=== PATIENT | male | born 1980 | race Hispanic/Latino ===

== ENCOUNTER 2017-08-23 14:56 | Emergency (ER) | payer OTHER ==
[~2017-08-23] VITALS: Ht 188 cm; Wt 140.6 kg
[~2017-08-23 14:56] MED LIST: AMARYL2 MG PO; AUGMENTIN 875-1 EACH PO; CHLORTHALIDONE50 MG; LISINOPRIL20 MG PO; MELOXICAM7.5 MG PO; METFORMIN HCL1000 MG PO; METFORMIN HCL500 M1; PRAVASTATIN SOD20 MG PO; TYLENOL WITH C1 EACH PO; ULTRAM50 MG PO; VIBRAMYCIN100 MG PO
[2017-08-23] MEDS ORDERED: DIAZEPAM 5 MG TAB PO PRN (15:15)
[2017-08-23] MEDS ORDERED: HYDROCODONE/APAP 10MG-325MG TAB PO ONE (15:15)
[2017-08-23] MEDS ORDERED: KETOROLAC TROMETHAMINE 60 MG/2 ML VIAL IM ONE (15:15)
--- NOTE | 2017-08-23 17:18 | Diagnostic Imaging Report ---
PROCEDURE:X-RAY UNILATERAL RIBS WITH CHEST X-RAY COMPARISON:None. INDICATIONS:RIB PAIN FINDINGS: BONES: Normal mineralization. No acute fracture or dislocation. Joint spaces are within normal limits. No lytic or expansile lesion. SOFT TISSUES:Negative. OTHER:Lungs are clear. Cardiac mediastinal silhouette is unremarkable.. CONCLUSION: No acute displaced fracture or dislocation. Pankaj Andino M.D. Dictated by: Pankaj Andino M.D. on 08/23/2017 at 17:20 Electronically approved by: Pankaj Andino M.D. on 08/23/2017 at 17:20
[2017-08-23 18:04] VITALS: BP 126/89
== END 2017-08-23 17:55 | disposition home or self-care (01) ==
LOC: ER 14:56
DX: R07.89 Other chest pain (principal); S29.011A Strain of muscle and tendon of front wall of thorax, initial encounter; X50.0XXA Overexertion from strenuous movement or load, initial encounter; Y99.0 Civilian activity done for income or pay
CPT/HCPCS: 71101; 99283; J1885

== ENCOUNTER 2017-10-28 18:43 | Emergency (ER) | payer OTHER ==
[~2017-10-28] VITALS: Ht 188 cm; Wt 140.6 kg
[2017-10-28] MEDS ORDERED: KETOROLAC TROMETHAMINE 60 MG/2 ML VIAL IM ONE (19:15)
[2017-10-28] MEDS ORDERED: HYDROCODONE/APAP 5MG-325MG TAB PO ONE (19:15)
[2017-10-28] MEDS ORDERED: CYCLOBENZAPRINE HCL 10 MG TAB PO ONE (19:15)
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
[2017-10-28 21:39] VITALS: BP 144/98
== END 2017-10-28 21:46 | disposition home or self-care (01) ==
LOC: ER 18:43
DX: M54.2 Cervicalgia (principal); M25.512 Pain in left shoulder; M54.5 Low back pain; S00.83XA Contusion of other part of head, initial encounter; S20.219A Contusion of unspecified front wall of thorax, initial encounter; M62.838 Other muscle spasm; V53.5XXA Driver of pick-up truck or van injured in collision with car, pick-up truck or van in traffic accident, initial encounter; Y92.488 Other paved roadways as the place of occurrence of the external cause
CPT/HCPCS: 70450; 71046; 72110; 72125; 73030; 96372; 99283; J1885

== ENCOUNTER 2018-04-04 19:29 | Emergency (ER) | payer OTHER ==
[~2018-04-04] VITALS: Ht 188 cm; Wt 140.6 kg
--- OUTSIDE RECORDS SUMMARY | 2018-04-04 19:32 | XMS REPORT | Clinical Summary ---
Author Author [facility] Organization [facility] Address Unknown Phone Unavailable Care Team Providers Care Rn Orthopedic Name Role Phone Ross Rose MD PCP Allergies Not on File Medications Not on file Active Problems Not on file Social History Date Tobacco Use Types Packs/Day Years Used Never Assessed Sex Assigned at Date Recorded Not on file Industry Job Start Date Occupation Not on file Not on file Not on file Travel End Travel History Travel Start No recent travel history available. Last Filed Vital Signs Not on file Plan of Treatment Health Maintenance Due Date Last Done Comments INFLUENZA VACCINE 11/16/2017 Procedures Comments Procedure Name Priority Date/Time Associated Diagnosis SEMEN ANALYSIS Routine 01/25/2018 4:03 PM CDT after 04/03/2017 Results * Semen analysis (01/25/2018 4:03 PM CDT) Volume, semen 2 2-5mL mL [facility] [place] DEPARTMENT OF PATHOLOGY AND GENOMIC MEDICINE Color, semen Grimes-White Grimes-White mL [facility] [place] [facility] DEPARTMENT OF PATHOLOGY AND GENOMIC MEDICINE Appearance, semen Opaque [facility] DEPARTMENT OF PATHOLOGY AND GENOMIC MEDICINE Count, semen 0Comment: No sperm seen--Many >20mil/mL mil/mL [facility] DEPARTMENT OF coleman examined PATHOLOGY AND GENOMIC MEDICINE Morphology, semen FootnoteComment: No sperm seen >50% % NRM [facility] [place] DEPARTMENT OF PATHOLOGY AND GENOMIC MEDICINE pH, semen 8.0 7.2 - 8.0 [facility] [place] DEPARTMENT OF PATHOLOGY AND GENOMIC MEDICINE Viscosity, semen Normal [facility] DEPARTMENT OF Comment: PATHOLOGY AND Normal--------Drips/pours GENOMIC MEDICINE easily Moderate------Thick, does not drop/pour easily Marked--------Unable to pipette or work with Liquefaction, semen <=60 <=60 [facility] DEPARTMENT OF PATHOLOGY AND GENOMIC MEDICINE Motility 1 hr, semen Not Performed >50% [facility] DEPARTMENT OF PATHOLOGY AND GENOMIC MEDICINE Motility 4 hr, semen Not Performed [facility] DEPARTMENT OF PATHOLOGY AND GENOMIC MEDICINE Motility 24 hr, semen Not Performed [facility] DEPARTMENT OF PATHOLOGY AND GENOMIC MEDICINE RBC, semen 1-5 None seen/HPF % [facility] DEPARTMENT OF PATHOLOGY AND GENOMIC MEDICINE WBC, semen 21-40 (A) 0-2/HPF % [facility] [place] DEPARTMENT OF PATHOLOGY AND GENOMIC MEDICINE Collection method, semen Self [facility] DEPARTMENT OF PATHOLOGY AND GENOMIC MEDICINE Abstinence days, semen 7 [facility] DEPARTMENT OF PATHOLOGY AND GENOMIC MEDICINE Container, semen Sterile [facility] DEPARTMENT OF PATHOLOGY AND GENOMIC MEDICINE Collect problems, semen None [facility] DEPARTMENT OF PATHOLOGY AND GENOMIC MEDICINE Collect time, semen 1,603 [facility] DEPARTMENT OF PATHOLOGY AND GENOMIC MEDICINE Lab receipt time, semen 1,613 [facility] DEPARTMENT OF PATHOLOGY AND GENOMIC MEDICINE Analysis time, semen 1,630 [facility] DEPARTMENT OF PATHOLOGY AND GENOMIC MEDICINE Specimen Fluid Performing Organization Address City/State/Zipcode Phone Number [facility] DEPARTMENT OF [facility] [address] PATHOLOGY AND GENOMIC MEDICINE after 04/03/2017 Insurance Payer Benefit Subscriber ID Type Phone Address Plan / Group CIGNA CIGNA OPEN xxxxxxxxx O ACCESS/NET WORK Advance Directives Patient has advance care planning documents on file. For more information, [place] e contact: Eduardo Nunes [address] [place] [address]
--- OUTSIDE RECORDS SUMMARY | 2018-04-04 19:32 | XMS REPORT | Summary of Care ---
Author Author Bing Albright M.A. Unknown Address Unknown Phone Unavailable Care Team Providers Care Pipe Smoker Machine Operator Name Role Phone MACK TURNER M.D. Unavailable Unavailable MONIQUE PAZ III, MD Unavailable Unavailable JOHNNY BROWN AR, MACK Adams Unavailable Unavailable Functional Status Name Dates Details Functional status health issues are not documented Status: Name Dates Details Cognitive status health issues are not documented Status: Problems Name Dates Details Active medical history not documented Status: Medications Name Dates Details Medications not documented Allergies and Adverse Reactions Name Dates Details Allergy history not documented Status: Procedures Procedure Dates Details Procedures not documented Immunization Name Dates Details Immunizations not documented Social History Name Dates Details Unknown if ever smoked Vital Signs Date Test Result Details No Known Vitals to report Results Date Description Value Details Results not documented Plan of Care Name Dates Details Planned Observations Planned Goals not documented Interventions Provided Plan* 02/21/2018 * To whom it may concern: * This is to certify that LAZ HIGHTOWER came into the office. However, he was not seen since he's currently under treatment with another pain management physician. * Thank you, * Bing Albright MA * . Instructions Name Dates Details Instructions not documented Encounters Appointment; MACK TURNER M.D. Encounter Diagnosis: Problem not documented On: 21-Feb-2018 9:00
[2018-04-04] MEDS ORDERED: GABAPENTIN300 MG PO (20:42)
[2018-04-04] MEDS ORDERED: MELOXICAM7.5 MG PO (20:42)
[2018-04-04] MEDS ORDERED: AMOX TR-K CLV1 EAC2 PO (20:42)
[2018-04-04] MEDS ORDERED: SERTRALINE HCL100 MG PO (20:42)
[2018-04-04] MEDS ORDERED: PRAVASTATIN SOD40 MG PO (20:42)
[2018-04-04 20:45] VITALS: BP 168/109
== END 2018-04-04 20:48 | disposition home or self-care (01) ==
LOC: ER 19:29
DX: R51 Headache (principal); J01.10 Acute frontal sinusitis, unspecified
CPT/HCPCS: 99282

== ENCOUNTER 2019-11-22 03:17 | Inpatient (IN) | payer OTHER ==
[~2019-11-22] VITALS: Ht 188 cm; Wt 130.9 kg
[~2019-11-22 03:17] MED LIST changes: +AMOX TR-K CLV1 EAC2 PO; +GABAPENTIN300 MG PO; +PRAVASTATIN SOD40 MG PO; +SERTRALINE HCL100 MG PO
[2019-11-22] MEDS ORDERED: ACETAMINOPHEN 325 MG TAB PO ONE (03:45)
[2019-11-22] MEDS ORDERED: HYDROCODONE/APAP 5MG-325MG TAB PO ONE (03:45)
--- NOTE | 2019-11-22 03:45 | Emergency Department Note ---
History of Present Illnes History of Present Illness Chief Complaint: Genitourinary History of Present Illness This is a 38 year old male with recent diagnosis of "orchitis " by his urologist presents to the ED for recurrent testicular pain with enlargement of Right testicle onset 2 days prior. Onset (how long ago): day(s) (2) Radiation: Reports non-radiation Severity: moderate Onset quality: gradual Duration (how long): day(s) (2) Timing of current episode: constant Progression: worsening Chronicity: recurrent Context: Denies trauma/injury Relieving factors: none Exacerbating factors: none Associated symptoms: Reports denies other symptoms Previous service: tests performed, one or more referrals, re-evaluation Past Medical/Family History Physician Review I have reviewed the patient's past medical and family history. Any updates have been documented here. Past Medical History Recent Fever: No Clinical Suspicion of Infectio: No New/Unexplained Change in Ment: No Past Medical History: Hypertension, Diabetes, Hyperlipedemia Other Surgery: Rt RCR Social History Smoking Cessation: Never Smoker Alcohol Use: None Any Illegal Drug Use: No Other Last Tetanus: <5yrs Review of Systems Review of Systems Constitutional: Reports no symptoms EENTM: Reports no symptoms Cardiovascular: Reports no symptoms Respiratory: Reports no symptoms Gastrointestinal: Reports no symptoms Genitourinary: Reports pain Musculoskeletal: Reports no symptoms Integumentary: Reports no symptoms Neurological: Reports no symptoms Psychological: Reports no symptoms Endocrine: Reports no symptoms Hematological/Lymphatic: Reports no symptoms Physical Exam Related Data Allergies: Coded Allergies: No Known Allergies (Unverified , 10/28/17) Triage Vital Signs Vital Signs Date Time Temp Pulse Resp B/P (MAP) Pulse Ox O2 Delivery O2 Flow Rate FiO2 11/22/19 03:41 100.3 102 20 116/72 98 Room Air Vital signs reviewed: Yes Physical Exam CONSTITUTIONAL Constitutional: Present well-developed, Present well-nourished, Present obese; Absent ill appearing HENT HENT: Present normocephalic, Present atraumatic, Present oropharynx clear/moist, Present nose normal HENT L/R: Present left ext ear normal, Present right ext ear normal EYES Eyes: Reports PERRL, Reports conjunctivae normal NECK Neck: Present ROM normal PULMONARY Pulmonary: Present effort normal, Present breath sounds normal CARDIOVASCULAR Cardiovascular: Present intact distal pulses, Present tachycardia GASTROINTESTINAL Abdominal: Present soft, Present nontender, Present bowel sounds normal GENITOURINARY Genitourinary: Present other (enlarged R hemiscrotum) SKIN Skin: Present warm, Present dry MUSCULOSKELETAL Musculoskeletal: Present ROM normal NEUROLOGICAL Neurological: Present alert, Present oriented x 3, Present no gross motor or sensory deficits PSYCHOLOGICAL Psychological: Present mood/affect normal, Present judgement normal Results Laboratory Lab results reviewed: Yes Laboratory comments wbc 17k Imaging Imaging results reviewed: Yes Impressions [place] [address] Patient Name: LAZ HIGHTOWER MR #: [id number] : 1980 Age/Sex: 38/M Req #: [id number] Adm Physician: Ordered by: DENIS MARLOW DO Report #: [id number] Location: ER Room/Bed: Procedure: [id number] CT/CT ABDOMEN/PELVIS W Exam Date: 11/22/19 Exam Time: 0800 REPORT STATUS: Signed CT of the abdomen and pelvis, with contrast. History: Right inguinal hernia. Comparison: Testicular ultrasound examination from earlier 11/22/2019. Technique: Multidetector CT scanning of the abdomen and pelvis was performed from the level of the lung bases to the inferior pubic rami after intravenous and oral administration of contrast. Coronal and sagittal multiplanar reformations were obtained. RADIATION DOSE: Total DLP: 1179.07 mGy*cm Dose modulation, iterative reconstruction, and/or weight based adjustment of the mA/kV was utilized to reduce the radiation dose to as low as reasonably achievable. FINDINGS: The visualized intrathoracic contents demonstrate no significant abnormalities. The liver is normal in size but appears diffusely decreased in attenuation in comparison the spleen suggestive of fatty infiltration. No focal hepatic abnormality is identified. The gallbladder is unremarkable. There is no intra or extrahepatic biliary ductal dilatation. The spleen is mildly prominent but otherwise unremarkable. The stomach, pancreas, and bilateral adrenal glands demonstrate no significant abnormalities. The kidneys are normal in size and location and enhance symmetrically. There is no evidence for nephrolithiasis or hydronephrosis. No ureteral stone or dilatation is appreciated. The urinary bladder is unremarkable. Dystrophic calcifications noted within the prostate which is otherwise unremarkable. There is scrotal wall thickening with inflammatory change and fluid noted about the right testicle extending into the right inguinal region which was better evaluated on the recent prior testicular ultrasound examination. In this patient with history of inguinal hernia, no fat or bowel containing inguinal hernia or fascial defect is appreciated. The abdominal aorta is normal course and caliber. The IVC is unremarkable. The visualized loops of small and large bowel demonstrate no evidence of obstruction or inflammation. The appendix/appendiceal stump is identified and appears unremarkable. There is no ascites or intraperitoneal free air. Multiple normal-sized periaortic and inguinal lymph nodes noted which are nonspecific. No abnormally enlarged lymph nodes are identified by CT size criteria. The osseous structures demonstrate no evidence for acute fracture or destructive process. The extraperitoneal soft tissues are unremarkable. IMPRESSION: Scrotal wall thickening and fat stranding/fluid noted about the right testicle with extension into the right inguinal region. Findings are better evaluated on the recent prior testicular ultrasound examination which demonstrated evidence for right epididymo-orchitis. No organized/drainable fluid collection identified. No evidence for inguinal hernia. Inflammatory change noted along the right inguinal ligament which likely created the appearance of a bowel containing hernia on the prior ultrasound examination. Signed by: Dr. Quinton Santana MD on 11/22/2019 9:09 AM Dictated By: QUINTON SANTANA MD 8 Transcribed By: IMELDA on 11/22/19908 COPY TO: DENIS MARLOW DO~ Assessment & Plan Medical Decision Making MDM Diff Dx : inguinal hernia, testicular CA, epididymitis, orchitis, testicular torsion. Assessment & Plan Final Impression: (1) Orchitis Depart Disposition: ADMITTED Home Meds Active Scripts Tramadol Hcl (ULTRAM) 50 Mg Tablet, 50 MG PO Q6HR PRN for ABDOMINAL PAIN, #14 TAB Prov:MIL RETANA DO 11/22/19 Doxycycline Hyclate (DOXYCYCLINE HYCLATE) 100 Mg Capsule, 100 MG PO BID, #20 TAB 0 Refills Prov:MIL RETANA DO 11/22/19 Reported Medications Amlodipine Bes/Olmesartan Med (MARCY 10-40 MG TABLET) 1 Each Tablet, 1 TAB PO DAILY 11/22/19 Empagliflozin/Metformin HCl (Synjardy Xr 10-1,000 mg Tablet) 1 Each Tab.bp.24h, 2 TAB PO DAILY 11/22/19 Multivitamin (MULTI-VITAMIN DAILY) 1 Each Tablet, 1 TAB PO DAILY 11/22/19 Meloxicam (MELOXICAM) 7.5 Mg Tablet, 7.5 MG PO DAILY 04/04/18 Sertraline Hcl (SERTRALINE HCL) 100 Mg Tablet, 100 MG PO DAILY 04/04/18 Pravastatin Sodium (PRAVASTATIN SODIUM) 40 Mg Tablet, 40 MG PO DAILY 04/04/18 Discontinued Reported Medications Amoxicillin/Potassium Clav (AMOX TR-K CLV 875-125 MG TAB) 1 Each Tablet, 1 TAB PO BID 04/04/18 Gabapentin (GABAPENTIN) 300 Mg Capsule, 300 MG PO TID, #60 CAP 04/04/18 Metformin Hcl (METFORMIN HCL) 1,000 Mg Tablet, 1000 MG PO BID 10/17/15 Lisinopril (PRINAVIL / ZESTRIL) 20 Mg Tablet, 20 MG PO DAILY 05/19/13 Medications in the ED Acetaminophen 650 mg ONCE ONCE PO ; Start 11/22/19 at 03:45; Stop 11/22/19 at 03:46 Acetaminophen/ Hydrocodone Bitart 1 ea ONCE ONCE PO ; Start 11/22/19 at 03:45; Stop 11/22/19 at 03:46 DENIS MARLOW DO Nov 22, 2019 03:45
--- OUTSIDE RECORDS SUMMARY | 2019-11-22 05:01 | XMS REPORT | Clinical Summary ---
Author Author [facility] Organization [facility] Address Unknown Phone Unavailable Care Team Providers Care Special Tax Auditor Name Role Phone Ross Rose MD PCP [...] Health Maintenance Due Date Last Done Comments DIABETIC RETINAL EYE EXAM 1980 DIABETIC FOOT EXAM 11/28/1989 URINE MICROALBUMIN 11/28/1989 INFLUENZA VACCINE 11/17/2019 Results Not on fileafter 11/21/2018 Insurance Type Payer Benefit Subscriber ID Effective Phone Address Plan / Dates Group HMO CIGNA CIGNA OPEN xxxxxxxxx 2017-P ACCESS/NET resent WORK [address] (Home) [place] [address] Advance Directives For more information, please contact: [phone] Patient Imaging Center Manager Explanation Type Date Recorded Advance Directives, Living Will and Medical Power of Piece Marker [employer]
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
[2019-11-22 05:03] LABS: BILIRUBIN,URINE NEGATIVE (NEGATIVE); CLARITY,URINE CLEAR (CLEAR); COLOR,URINE YELLOW (YELLOW); KETONES,URINE 2+ (NEGATIVE); LEUKOCYTE ESTERASE ,URINE NEGATIVE (NEGATIVE); NITRITE,URINE NEGATIVE (NEGATIVE); PROTEIN,URINE DIPSTICK NEGATIVE (NEGATIVE); URINE UROBILINOGEN 0.2 mg/dL (0.2 - 1)
[2019-11-22 05:18] LABS: BACTERIA,URINE RARE /HPF; EPITHELIAL CELLS,URINE FEW /LPF
--- NOTE | 2019-11-22 05:59 | Diagnostic Imaging Report ---
EXAM: Scrotal Ultrasound with Duplex INDICATION: testicular pain COMPARISON: None TECHNIQUE: Transverse and longitudinal images were obtained of the scrotum with grayscale imaging, color Doppler and spectral waveform analysis. FINDINGS: Right testis: Size: 3.7 x 2.4 x 3.2 cm, normal in size. Echogenicity: Normal Mass/Cysts: None Left testis: Size: 4.1 x 2.4 x 2.6 cm, normal in size. Echogenicity: Normal Mass/Cysts: None Epididymis: Appearance: Right epididymis is enlarged, heterogenous. Left epididymis is normal. Mass/Cysts: 5 mm left epididymal head cyst. Extratesticular: Masses: Peristalsing bowel is seen in the right inguinal region. Hydrocele: None Varicocele: None Doppler: Arterial and venous flow are demonstrated in both testes on color Doppler evaluation is seen. There is increased hypervascularity of the right testis and epididymis No evidence of testicular torsion. IMPRESSION: 1. No evidence of testicular torsion. 2. Acute right epididymo-orchitis. 3. Bowel containing right inguinal hernia. Signed by: Victor M Hernandez MD on 11/22/2019 5:56 AM
[2019-11-22] MEDS ORDERED: ONDANSETRON HCL INJ 2MG/ML 2ML 2 MG/ML VIAL IV STA (06:33)
[2019-11-22] MEDS ORDERED: MORPHINE SULFATE INJ 4 MG/ML INJ 1ML IV STA (06:33)
[2019-11-22] MEDS ORDERED: DIATRIZOATE MEGL/DIATRIZOA SOD 30 ML BTL PO ONE (07:02)
[2019-11-22 07:06] LABS: BASOPHILS # (AUTO) 0.1 (0.0-0.1); BASOPHILS % 0.3 % (0.0-1.0); EOSINOPHILS # (AUTO) 0.1 (0.0-0.4); EOSINOPHILS % 0.4 % (0.0-6.0); HEMATOCRIT 46.3 % (38.2-49.6); HEMOGLOBIN 15.2 g/dL (14.0-18.0); LYMPHOCYTES # (AUTO) 1.4 (1.0-3.2); MEAN CORPUSCULAR HEMOGLOBIN 29.3 pg (28-32); MEAN CORPUSCULAR HGB CONC 32.8 g/dL (31-35); MEAN CORPUSCULAR VOLUME 89.4 fL (81-99); MONOCYTES # (AUTO) 1.3 (0.2-0.8); MONOCYTES % 7.2 % (4.4-11.3); NEUTROPHILS # (AUTO) 14.9 (2.1-6.9); NEUTROPHILS % 83.4 % (38.7-80.0); PLATELET COUNT 167 x10e3/uL (140-360); RED BLOOD COUNT 5.18 x10e6/uL (4.3-5.7); RED CELL DISTRIBUTION WIDTH 13.7 % (11.7-14.4)
[2019-11-22] MEDS ORDERED: IOPAMIDOL 370 MG/ML 200 ML INFUS..BTL INJ ONE (07:25)
[2019-11-22] MEDS ORDERED: SODIUM CHLORIDE 0.9% 50ML 50 ML ONE (07:25)
[2019-11-22 07:40] LABS: ALANINE AMINOTRANSFERASE 22 IU/L (0-55); ALBUMIN 3.6 g/dL (3.5-5.0); ALBUMIN/GLOBULIN RATIO 0.9 (0.8-2.0); ALKALINE PHOSPHATASE 83 IU/L (40-150); ANION GAP 14.3 mmol/L (8-16); BLOOD UREA NITROGEN 15 mg/dL (7-26); BUN/CREATININE RATIO 16 (6-25); CALCIUM 9.6 mg/dL (8.4-10.2); CARBON DIOXIDE 22 mmol/L (22-29); CHLORIDE 103 mmol/L (98-107); CREATININE, SERUM 0.96 mg/dL (0.72-1.25); EST GLOMERULAR FILTRATION RATE > 60 ML/MIN (60-); GLUCOSE 134 mg/dL (74-118); POTASSIUM 4.3 mmol/L (3.5-5.1); SODIUM 135 mmol/L (136-145)
--- NOTE | 2019-11-22 09:12 | Diagnostic Imaging Report ---
CT of the abdomen and pelvis, with contrast. History: Right inguinal hernia. Comparison: Testicular ultrasound examination from earlier 11/22/2019. Technique: Multidetector CT scanning of the abdomen and pelvis was performed from the level of the lung bases to the inferior pubic rami after intravenous and oral administration of contrast. Coronal and sagittal multiplanar reformations were obtained. RADIATION DOSE: Total DLP: 1179.07 mGy*cm Dose modulation, iterative reconstruction, and/or weight based adjustment of the mA/kV was utilized to reduce the radiation dose to as low as reasonably achievable. FINDINGS: The visualized intrathoracic contents demonstrate no significant abnormalities. The liver is normal in size but appears diffusely decreased in attenuation in comparison the spleen suggestive of fatty infiltration. No focal hepatic abnormality is identified. The gallbladder is unremarkable. There is no intra or extrahepatic biliary ductal dilatation. The spleen is mildly prominent but otherwise unremarkable. The stomach, pancreas, and bilateral adrenal glands demonstrate no significant abnormalities. The kidneys are normal in size and location and enhance symmetrically. There is no evidence for nephrolithiasis or hydronephrosis. No ureteral stone or dilatation is appreciated. The urinary bladder is unremarkable. Dystrophic calcifications noted within the prostate which is otherwise unremarkable. There is scrotal wall thickening with inflammatory change and fluid noted about the right testicle extending into the right inguinal region which was better evaluated on the recent prior testicular ultrasound examination. In this patient with history of inguinal hernia, no fat or bowel containing inguinal hernia or fascial defect is appreciated. The abdominal aorta is normal course and caliber. The IVC is unremarkable. The visualized loops of small and large bowel demonstrate no evidence of obstruction or inflammation. The appendix/appendiceal stump is identified and appears unremarkable. There is no ascites or intraperitoneal free air. Multiple normal-sized periaortic and inguinal lymph nodes noted which are nonspecific. No abnormally enlarged lymph nodes are identified by CT size criteria. The osseous structures demonstrate no evidence for acute fracture or destructive process. The extraperitoneal soft tissues are unremarkable. IMPRESSION: Scrotal wall thickening and fat stranding/fluid noted about the right testicle with extension into the right inguinal region. Findings are better evaluated on the recent prior testicular ultrasound examination which demonstrated evidence for right epididymo-orchitis. No organized/drainable fluid collection identified. No evidence for inguinal hernia. Inflammatory change noted along the right inguinal ligament which likely created the appearance of a bowel containing hernia on the prior ultrasound examination. Signed by: Dr. Quinton Santana MD on 11/22/2019 9:09 AM
[2019-11-22] MEDS ORDERED: ULTRAM50 MG PO (11:09)
[2019-11-22] MEDS ORDERED: DOXYCYCLINE HY100 MG PO (11:09)
[2019-11-22] MEDS ORDERED: ONDANSETRON HCL INJ 2MG/ML 2ML 2 MG/ML VIAL IV PRN (11:30)
[2019-11-22] MEDS ORDERED: MORPHINE SULFATE 2 MG/ML SYR 1ML IV PRN (11:30)
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
--- OUTSIDE RECORDS SUMMARY | 2019-11-22 11:38 | XMS REPORT | Clinical Summary ---
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
[2019-11-22] MEDS: MORPHINE SULFATE INJ 4 MG/ML INJ 1ML IV PRN ×2 (12:01→21:22)
[2019-11-22 12:45] VITALS: BP 115/76
--- NOTE | 2019-11-22 12:45 | NUR ---
Received patient via wheelchair from ER. AAOX4 to time, person, place, situation. Respirations even and unlabored. Oriented patient to room. Instructed to use call light for assistance. Voiced understanding.
[2019-11-22 13:00] VITALS: BP 115/76
[2019-11-22] MEDS ORDERED: MULTI-VITAMIN1 EACH PO (13:36)
[2019-11-22] MEDS ORDERED: AZOR 10-40 MG1 EACH PO (13:36)
[2019-11-22] MEDS ORDERED: SYNJARDY XR 101 EACH PO (13:36)
[2019-11-22] MEDS ORDERED: SODIUM CHLORIDE 0.9% 250ML 250 ML ONE (14:40)
--- NOTE | 2019-11-22 15:00 | NUR ---
Provided patient with ice pack as ordered
[2019-11-22] MEDS: MEROPENEM 1GM 100 ML IV SCH ×2 (15:07→21:22)
[2019-11-22] MEDS: HYDROCODONE/APAP 5MG-325MG TAB PO PRN (15:50)
[2019-11-22 15:53] VITALS: BP 109/67
--- NOTE | 2019-11-22 17:24 | Consultation ---
DATE OF CONSULTATION: 11/22/[address] Lindsay. REASON FOR CONSULTATION: Painful testicles, particularly the right side. HISTORY: A 38-year-old male, comes to the emergency room with increasing amount of pain from the right testicle in the left of a week's duration. He was originally given ampicillin, switched over to Cipro when the ampicillin did not work, switched over to nitrofurantoin when he [facility] a [facility] because of more swelling on the right testicle and increased pain. He had taken all of the three antibiotics and come to the emergency room with more pain and swelling on his right testicle going to his groin. He gives no history of having gross hematuria or having kidney stones or any urological surgery. On history, the patient gives a history of having had swelling of one testicle or the other since it was 15 years old. This swelling has been intermittent, sometimes it happen 2 to 3 times a year and sometimes it goes away for even up to two years at a time, but most of the time he says that he has it once or twice a year. He has always taken antibiotic and always has responded to antibiotic right away. It is the first time when the response is not rapid as he is used to. Also, by history he states that he has not had any children that 2 years ago he was tested and he had no sperms and he was told that he probably has had his epididymal tubules obstructed from all the previous infections that he has had of epididymitis. SOCIAL HISTORY: He is . He has no biological children, but his has had 6 children, which he has helped raise. ALLERGIES: NO KNOWN DRUG ALLERGIES. MEDICATIONS: See list. PREVIOUS MEDICAL HISTORY: He has had diabetes for which he takes medications for it. He also follows a diet. He stated that he has lost approximately 50 pounds weight in the last 2 years. PHYSICAL EXAMINATION: On physical examination, bilaterally descended testicles. The epididymis on the right side is extremely swollen and hard. The skin is not attached to the tunica is easily movable. The only apparent thing is the swelling. The left testicle is easily palpable. The tail of the epididymis on the left side is hard, minimally tender. Cord on the right side is swollen and tender. The penis is circumcised. Prostate is approximately 30 g. IMAGING: Ultrasound shows epididymitis, acute from the right side. Testicle is normal as well as the left one. Examination of the groin with ultrasound shows no hernias plus enlargement and engorgement of the blood vessels of the cord on the right side. The left is normal. CT scan does not show any urological abnormality. There is no hernias also on CT scan. IMPRESSION: Acute right epididymitis. RECOMMENDATIONS: IV antibiotics. He has been on Cipro, ampicillin, and nitroglycerin by mouth and would like to cover him for Pseudomonas, so imipenem or member of its family will be the proper antibiotic, I will write that order. Also, he needs to have something for pain and I have given that order as well. I would expect the patient to be in the hospital between 3 to 5 days receiving IV antibiotics. Urinalysis does show white blood cells and red blood cells, although there is no bacteria, but he has been on oral antibiotic three different ones prior to this admission; therefore, I do not think the culture will be positive. I will presume that the patient has had this chronicity and I would recommend that once the patient is over this acute process, and once his swelling has gone down, that a bilateral epididymectomy should be performed. He has no sperms. Therefore, we should get rid of the problem that he has had since he is 15 years old. Francisco Lewis MD [facility]/MODL /[id number] cc: Ross Rose III, MD
--- NOTE | 2019-11-22 18:52 | NUR ---
Report given to oncoming nurse of patient's status. Resting in bed. NO s/s of acute distress noted. Side rails upx2, call light within reach.
[2019-11-22 20:00] VITALS: BP 112/76
[2019-11-22 20:08] VITALS: BP 112/76
[2019-11-22] MEDS ORDERED: HYDRALAZINE HCL 25 MG TAB PO PRN (21:30)
[2019-11-22] MEDS ORDERED: DEXTROSE 50% SYRINGE 50 ML IV PRN (21:30)
[2019-11-22] MEDS ORDERED: TRAMADOL HCL 50 MG TAB PO PRN (21:30)
[2019-11-22] MEDS: PRAVASTATIN 20 MG TAB PO SCH (22:38)
[2019-11-22] MEDS: INSULIN LISPRO 100 UNIT/1 ML 3ML VIAL SQ SCH (22:42)
[2019-11-22 23:55] VITALS: BP 108/63
[2019-11-23 04:15] VITALS: BP 116/71
[2019-11-23] MEDS: MORPHINE SULFATE INJ 4 MG/ML INJ 1ML IV PRN ×3 (05:00→20:04)
[2019-11-23] MEDS: MEROPENEM 1GM 100 ML IV SCH ×3 (05:01→20:57)
[2019-11-23 05:23] LABS: BASOPHILS % 0.2 % (0.0-1.0); EOSINOPHILS # (AUTO) 0.2 (0.0-0.4); EOSINOPHILS % 1.1 % (0.0-6.0); HEMATOCRIT 45.6 % (38.2-49.6); HEMOGLOBIN 14.8 g/dL (14.0-18.0); LYMPHOCYTES # (AUTO) 1.4 (1.0-3.2); LYMPHOCYTES % 9.4 % (18.0-39.1); MEAN CORPUSCULAR HEMOGLOBIN 29.4 pg (28-32); MEAN CORPUSCULAR HGB CONC 32.5 g/dL (31-35); MEAN CORPUSCULAR VOLUME 90.5 fL (81-99); MONOCYTES # (AUTO) 0.9 (0.2-0.8); MONOCYTES % 5.8 % (4.4-11.3); NEUTROPHILS # (AUTO) 12.4 (2.1-6.9); PLATELET COUNT 169 x10e3/uL (140-360); RED BLOOD COUNT 5.04 x10e6/uL (4.3-5.7); RED CELL DISTRIBUTION WIDTH 14.1 % (11.7-14.4)
[2019-11-23 05:49] LABS: ALANINE AMINOTRANSFERASE 18 IU/L (0-55); ALBUMIN 3.4 g/dL (3.5-5.0); ALBUMIN/GLOBULIN RATIO 0.8 (0.8-2.0); ALKALINE PHOSPHATASE 73 IU/L (40-150); ANION GAP 13.5 mmol/L (8-16); BLOOD UREA NITROGEN 17 mg/dL (7-26); BUN/CREATININE RATIO 18 (6-25); CALCIUM 9.6 mg/dL (8.4-10.2); CARBON DIOXIDE 25 mmol/L (22-29); CHLORIDE 102 mmol/L (98-107); CREATININE, SERUM 0.94 mg/dL (0.72-1.25); EST GLOMERULAR FILTRATION RATE > 60 ML/MIN (60-); GLUCOSE 105 mg/dL (74-118); POTASSIUM 4.5 mmol/L (3.5-5.1); SODIUM 136 mmol/L (136-145)
--- NOTE | 2019-11-23 07:20 | NUR ---
PATIENT IS AWAKE, ALERT, AND IN STABLE CONDITION WITH NO S/S OF RESPIRATORY DISTRESS. NO PAIN VOICED AT THIS TIME. SWELLING NOTED TO RIGHT SCROTUM AREA- PATIENT APPLYING ICE PACK. CALL LIGHT IS WITHIN REACH, PATIENT INSTRUCTED TO CALL FOR ASSISTANCE NEEDED.
[2019-11-23] MEDS: INSULIN LISPRO 100 UNIT/1 ML 3ML VIAL SQ SCH ×4 (07:30→20:56)
[2019-11-23 07:41] VITALS: BP 113/77
[2019-11-23] MEDS: HYDROCODONE/APAP 5MG-325MG TAB PO PRN ×2 (08:38→16:29)
[2019-11-23] MEDS: AMLODIPINE BESYLATE 10 MG TAB PO SCH (08:42)
[2019-11-23] MEDS: SERTRALINE HCL 100 MG TAB PO SCH (08:42)
[2019-11-23] MEDS: OLMESARTAN 20 MG TAB PO SCH (08:42)
[2019-11-23 09:29] VITALS: BP 113/77
--- NOTE | 2019-11-23 09:38 | History and Physical ---
PRIMARY CARE PHYSICIAN: Ross Rose MD. DIRECTOR INDUSTRIAL MUSEUM: Francisco Lewis MD. REASON FOR ADMISSION: Scrotal cellulitis, pain, swelling, and right orchitis. HISTORY OF PRESENT ILLNESS: The patient is a 38-year-old male with recurrent orchitis and scrotal cellulitis. 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 At baseline, the patient does have diabetes, dyslipidemia, and hypertension. He was on doxycycline as an outpatient for the infection, which did not improve. The patient came to the hospital with WBC of 17.9 thousand. He does have a left shift with 84% neutrophils. The patient's chemistry otherwise unremarkable, but his blood sugar was quite elevated at 372. The patient is admitted. Meropenem IV antibiotic initiated. The patient's pain is improving with pain medication, but his swelling persists. The patient had a testicular ultrasound done show no torsion. He had acute right epididymo-orchitis. The patient also had abdominal and pelvic CT scan done as well. He has scrotal wall thickening and fat stranding fluid consistent with cellulitis. The patient is stable at this time. Blood sugar is improving. The patient was admitted for further treatment. PAST MEDICAL HISTORY: Recurrent orchitis, scrotal cellulitis. Diabetes type 2, hypertension, dyslipidemia, obesity. PAST SURGICAL HISTORY: Noncontributory. 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 He does not smoke. No alcohol consumption. No regular drugs. ALLERGIES: NO KNOWN ALLERGIES. HOME MEDICATIONS: The patient is on: 1. Talib combination of Norvasc and olmesartan. 2. Doxycycline antibiotics. 3. Synjardy. 4. Mobic. 5. Multivitamin. 6. Pravastatin. 7. Zoloft. 8. Tramadol. PHYSICAL EXAMINATION: VITAL SIGNS: Temperature was 100.3, blood pressure 116/72, pulse rate was 102. GENERAL: The patient is not in acute distress. He is awake. HEENT: Normocephalic and atraumatic. Anicteric. NECK: Supple grossly. PULMONARY: Diminished breath sounds. CARDIOVASCULAR: Tachycardia. ABDOMEN: Obese. Groin area bilateral scrotal swelling, worse on the right compared to the left. Tender to touch. Testes swelling. No open wound. NEUROLOGIC: No focal deficit. LABORATORY DATA: Sodium is 136, potassium 4.5, chloride 102, bicarb is 22, BUN is 15, creatinine 0.9, glucose was 372. WBC 17.9, hemoglobin 15.2, hematocrit 46, platelet is 167. TSH 1.4. Hemoglobin A1c was 7. Abdominal and pelvic CT, testicular ultrasound, and Doppler showed no torsion. There is orchitis epididymitis on the right. Scrotal cellulitis bilaterally, worse on the right. IMPRESSION: 1. Sepsis without shock. The patient has tachycardia, fever and leukocytosis associated with infection of the scrotal and also orchitis epididymitis. 2. Baseline diabetes type 2, controlled. 3. Obesity. 4. Scrotal testicular pain. PLAN: Continue with antibiotics as already ordered. Insulin sliding scale coverage. Resume home medication. Blood pressure control. Repeat lab work in the morning. Continue with pain control as well. Some IV fluids. The patient is already seen by Dr. Francisco Lewis. The recommendation is to continue with meropenem. Pain control. Keep the patient at least 3-5 day on IV antibiotics. Repeat the lab work. Recommendation once everything resolved, the patient should have bilateral epididymectomy. MD ABHINAV Garces/MODL /[id number]
[2019-11-23] MEDS ORDERED: SODIUM CHLORIDE 0.9% 1000ML 1,000 ML IV ONE (10:00)
[2019-11-23 11:20] VITALS: BP 106/74
[2019-11-23 15:48] VITALS: BP 112/77
--- NOTE | 2019-11-23 19:11 | NUR ---
PATIENT IS ALERT AND IN STABLE CONDITION WITH NO S/S OF RESPIRATORY DISTRESS. NO PAIN VOICED. IV FLUIDS INFUSING. ICE PACK APPLIED TO SACRUM AREA. CALL LIGHT IS WITHIN REACH, PATIENT INSTRUCTED TO CALL FOR ASSISTANCE NEEDED. BEDSIDE SIDE SHIFT REPORT GIVEN TO ONCOMING NURSE. BEDSIDE SHIFT REPORT GIVEN TO ONCOMING NURSE.
[2019-11-23 19:54] VITALS: BP 111/78
[2019-11-23] MEDS: PRAVASTATIN 20 MG TAB PO SCH (20:56)
[2019-11-23] MEDS: KETOROLAC TROMETHAMINE 30 MG/ML VIAL IV PRN (23:43)
[2019-11-24] VITALS (8 sets, daily range): BP systolic 104–121; BP diastolic 70–85
[2019-11-24] MEDS: MORPHINE SULFATE INJ 4 MG/ML INJ 1ML IV PRN ×2 (01:34→20:43)
[2019-11-24 05:13] LABS: BASOPHILS % 0.1 % (0.0-1.0); EOSINOPHILS # (AUTO) 0.2 (0.0-0.4); HEMATOCRIT 44.4 % (38.2-49.6); HEMOGLOBIN 14.3 g/dL (14.0-18.0); LYMPHOCYTES # (AUTO) 0.9 (1.0-3.2); LYMPHOCYTES % 11.7 % (18.0-39.1); MEAN CORPUSCULAR HEMOGLOBIN 29.7 pg (28-32); MEAN CORPUSCULAR HGB CONC 32.2 g/dL (31-35); MEAN CORPUSCULAR VOLUME 92.1 fL (81-99); MONOCYTES # (AUTO) 0.6 (0.2-0.8); MONOCYTES % 7.7 % (4.4-11.3); NEUTROPHILS % 77.1 % (38.7-80.0); PLATELET COUNT 163 x10e3/uL (140-360); RED BLOOD COUNT 4.82 x10e6/uL (4.3-5.7); RED CELL DISTRIBUTION WIDTH 13.6 % (11.7-14.4)
[2019-11-24] MEDS: MEROPENEM 1GM 100 ML IV SCH ×3 (06:25→22:00)
--- NOTE | 2019-11-24 07:00 | NUR ---
BEDSIDE SHIFT REPORT RECEIVED FROM KIMBERLEE WALKER. PT DENIES NEEDS AT THIS TIME.
[2019-11-24] MEDS: INSULIN LISPRO 100 UNIT/1 ML 3ML VIAL SQ SCH ×4 (07:30→21:00)
[2019-11-24] MEDS: SERTRALINE HCL 100 MG TAB PO SCH (08:57)
[2019-11-24] MEDS: OLMESARTAN 20 MG TAB PO SCH (08:57)
[2019-11-24] MEDS: AMLODIPINE BESYLATE 10 MG TAB PO SCH (08:57)
[2019-11-24] MEDS: GABAPENTIN 300 MG CAP PO SCH (17:08)
[2019-11-24] MEDS: KETOROLAC TROMETHAMINE 30 MG/ML VIAL IV PRN (17:14)
--- NOTE | 2019-11-24 19:27 | NUR ---
RECEIVED PT IN BED AOX3 ,DENIES PAIN .PT IS GET READY TO SHOWER .NO ACUTE DISTRESS NOTED .CALL LIGHT WITH IN REACH CONTINUE TO MONITOR
[2019-11-24] MEDS: PRAVASTATIN 20 MG TAB PO SCH (20:20)
[2019-11-25] VITALS (7 sets, daily range): BP systolic 108–118; BP diastolic 69–89
[2019-11-25] MEDS: MORPHINE SULFATE INJ 4 MG/ML INJ 1ML IV PRN ×2 (06:10→21:18)
[2019-11-25] MEDS: MEROPENEM 1GM 100 ML IV SCH ×3 (06:19→22:05)
--- NOTE | 2019-11-25 06:23 | NUR ---
PT C/O PAIN AND GIVEN ORDERED PAIN MEDICATION ,CALL LIGHT WITH IN REACH ,CONTINUE TO MONITOR
--- NOTE | 2019-11-25 07:06 | NUR ---
BEDSIDE REPORT GIVEN TO THE ONCOMING NURSE
--- NOTE | 2019-11-25 07:08 | NUR ---
BEDSIDE REPORT GIVEN TO THE ONCOMING NURSE
[2019-11-25] MEDS: INSULIN LISPRO 100 UNIT/1 ML 3ML VIAL SQ SCH ×4 (08:41→21:00)
[2019-11-25] MEDS: OLMESARTAN 20 MG TAB PO SCH (08:43)
[2019-11-25] MEDS: GABAPENTIN 300 MG CAP PO SCH ×2 (08:43→18:09)
[2019-11-25] MEDS: AMLODIPINE BESYLATE 10 MG TAB PO SCH (08:43)
[2019-11-25] MEDS: SERTRALINE HCL 100 MG TAB PO SCH (08:44)
[2019-11-25] MEDS: HYDROCODONE/APAP 5MG-325MG TAB PO PRN (13:10)
--- NOTE | 2019-11-25 19:56 | NUR ---
RECEIVED PT IN BED AOX3 ,DENIES PAIN AT THIS TIME .PT HAD SHOWER .SCROTUM SWOLLEN .CALL LIGHT WITH IN REACH CONTINUE TO MONITOR
[2019-11-25] MEDS: PRAVASTATIN 20 MG TAB PO SCH (21:06)
[2019-11-26] VITALS: BP 118/75
[2019-11-26 04:00] VITALS: BP 113/78
[2019-11-26] MEDS ORDERED: SODIUM CHLORIDE 0.9% 250ML 250 ML ONE (05:04)
[2019-11-26] MEDS: MORPHINE SULFATE INJ 4 MG/ML INJ 1ML IV PRN (05:30)
[2019-11-26] MEDS: MEROPENEM 1GM 100 ML IV SCH (06:00)
--- NOTE | 2019-11-26 06:12 | NUR ---
PT C/O PAIN AND GIVEN ORDERED PAIN MEDICATION .PT RESTING CALL LIGHT WITH IN REACH ,CONTINUE TO MONITOR
--- NOTE | 2019-11-26 07:20 | NUR ---
BEDSIDE REPORT GIVEN TO THE ONCOMING NURSE
[2019-11-26 08:00] VITALS: BP 122/82
[2019-11-26] MEDS: GABAPENTIN 300 MG CAP PO SCH (08:55)
[2019-11-26] MEDS: OLMESARTAN 20 MG TAB PO SCH (08:55)
[2019-11-26] MEDS: SERTRALINE HCL 100 MG TAB PO SCH (08:56)
[2019-11-26] MEDS: AMLODIPINE BESYLATE 10 MG TAB PO SCH (08:56)
[2019-11-26] MEDS: INSULIN LISPRO 100 UNIT/1 ML 3ML VIAL SQ SCH ×2 (09:03→11:30)
[2019-11-26] MEDS: HYDROCODONE/APAP 5MG-325MG TAB PO PRN (10:42)
[2019-11-26 11:48] VITALS: BP 114/81
== END 2019-11-26 12:27 | disposition home or self-care (01) | DRG 872 ==
LOC: ER 04:00 → ERHOLD 11:19 → MED/SURG2 12:56
PROVIDERS: ADMIT Internal Medicine; ATTEND Internal Medicine
DX: A41.9 Sepsis, unspecified organism (principal); E11.8 Type 2 diabetes mellitus with unspecified complications; N45.1 Epididymitis; Z11.59 Encounter for screening for other viral diseases; E66.9 Obesity, unspecified; Z68.37 Body mass index [BMI] 37.0-37.9, adult
CPT/HCPCS: 36415; 74177; 76870; 80053; 81001; 82948; 83036; 84443; 85025; 93976; 99284; J1885; J2270; J2405; J7030; J7050; Q9967; U0002

== ENCOUNTER → 2020-02-29 | Day surgery (SDC) | payer OTHER ==
[~2020-02-29] MED LIST changes: +ABX PO; +AZOR 10-40 MG1 EACH PO; +DOXYCYCLINE HY100 MG PO; +HYOSCYAMINE 0.125 MG TAB ONE; +MULTI-VITAMIN1 EACH PO; +SYNJARDY XR 101 EACH PO
[2020-02-29 13:05] VITALS: BP 96/67
--- NOTE | 2020-02-29 13:22 | Operative Report ---
DATE OF PROCEDURE: 02/29/2020 SURGEON: Akira Conrad MD PROCEDURE: Colonoscopy with polypectomy and biopsies. INDICATIONS FOR COLONOSCOPY: Colorectal cancer screening, strong family history of colon cancer, two brothers with colon cancer. MEDICATIONS: The patient was done under MAC, please see anesthesiologist's note. PROCEDURE IN DETAIL: With the patient in the left lateral decubitus position, a flexible fiberoptic Olympus colonoscope was inserted into the rectum with ease and advanced all the way to the cecum. It was then withdrawn slowly. Mucosa overlying the cecum appeared to be within normal limits. The ileocecal valve was intubated and the scope was advanced into the terminal ileum. Biopsies were obtained. The scope was then withdrawn back into the colon. It was then withdrawn slowly. Mucosa overlying the ascending colon grossly appeared to be within normal limits. A single diverticulum was noted in the ascending colon. One polyp was hot biopsied from the transverse colon. One polyp was hot biopsied from the descending colon. Diverticular disease also was noted to involve the distal descending and the sigmoid colon. The rectum grossly appeared to be within normal limits. The scope was then retroflexed into the distal rectum and small internal hemorrhoids were noted, none of which was actively bleeding. The scope was then straightened out, it was subsequently withdrawn, and the patient tolerated the procedure well. IMPRESSION: 1. Diverticulosis, primarily left colon. 2. Transverse colon polyp, hot biopsied. 3. Descending colon polyp, hot biopsied. 4. Internal hemorrhoids, none actively bleeding. PLAN: Follow up histology. Initiate high-fiber, low-fat diet. Initiate high-fiber supplement. The patient might benefit from a followup colonoscopy in 3 years. Akira Conrad MD [facility]/JAMIE /[id number] cc: Ross Rose III, MD
== END | disposition home or self-care (01) ==
LOC: OR 08:46
PROVIDERS: ATTEND Internal Medicine Gastroenterology
DX: Z12.11 Encounter for screening for malignant neoplasm of colon (principal); D12.3 Benign neoplasm of transverse colon; K57.30 Diverticulosis of large intestine without perforation or abscess without bleeding; K64.8 Other hemorrhoids; E78.5 Hyperlipidemia, unspecified; E11.9 Type 2 diabetes mellitus without complications; F41.9 Anxiety disorder, unspecified; Z91.040 Latex allergy status; Z01.810 Encounter for preprocedural cardiovascular examination; Z01.812 Encounter for preprocedural laboratory examination; Z20.828 Contact with and (suspected) exposure to other viral communicable diseases; Z79.84 Long term (current) use of oral hypoglycemic drugs; Z80.0 Family history of malignant neoplasm of digestive organs
CPT/HCPCS: 36415; 45380; 45384; 82948; 93005; U0002; 45378